=== PATIENT | female | born 1985 | race Caucasian/White ===

== ENCOUNTER 2018-12-07 12:14 | Inpatient (IN) | payer OTHER ==
--- NOTE | 2018-12-07 14:04 | US ---
EXAMINATION TYPE: US OB BPP wo non-stress DATE OF EXAM: 12/07/2018 COMPARISON: NONE CLINICAL HISTORY: decrease movement . EXAM PERFORMED: Transabdominal (TA) BPP PARAMETERS: PRESENTATION: Vertex LIE: Longitudinal?? HEART RATE: 140 bpm RHYTHM: Normal LONA: 17.4 DIAPHRAGM IMAGED: Yes BPP SCORIN. Breathin (1 episode of breathing of 30 second duration in 30 minutes of scanning time) 2. Movement: 2 (at least 3 discrete body movements in 30 minutes) 3. Tone: 2 (1 episode of active flexion/extension of limb) 4. LONA: 2 (LONA index > 5cm) IMPRESSION TOTAL SCORE: 6 / 8, breathing was not visualized during the examination. Heart rate of 140 bpm.
[2018-12-07] MEDS ORDERED: CITRIC ACID-SODIUM CITRATE 15 ML CUP PO ONE (15:13)
[2018-12-07] MEDS ORDERED: LACTATED RINGERS 1,000 ML IV ONE (15:13)
[2018-12-07] MEDS ORDERED: ceFAZolin IN SWFI 2 GM/20 ML SYRINGE IVP ONE (15:13)
[2018-12-07] MEDS ORDERED: LACTATED RINGERS 1,000 ML IV SCH ×2 (15:15→17:30)
[2018-12-07 15:53] VITALS: BMI 35.9
[2018-12-07 15:55] LABS: Basophils % (A) 0 %; Eosinophils # (A) 0.1 k/uL (0-0.7); Eosinophils % (A) 2 %; HCT 37.4 % (34.0-46.0); HGB 12.2 gm/dL (11.4-16.0); Lymphocytes # (A) 1.5 k/uL (1.0-4.8); Lymphocytes % (A) 18 %; MCH 27.9 pg (25.0-35.0); MCHC 32.7 g/dL (31.0-37.0); MCV 85.2 fL (80.0-100.0); Mean Platelet Volume 9.9; Monocytes # (A) 0.5 k/uL (0-1.0); Monocytes % (A) 6 %; Neutrophils # (A) 6.4 k/uL (1.3-7.7); Neutrophils % (A) 73 %; Platelet Count 222 k/uL (150-450); RBC 4.38 m/uL (3.80-5.40); RDW 13.5 % (11.5-15.5); WBC 8.8 k/uL (3.8-10.6)
[2018-12-07] MEDS ORDERED: ONDANSETRON 4 MG/2 ML VIAL ONE (16:37)
[2018-12-07] MEDS ORDERED: NALBUPHINE 10 MG/ML (1 ML AMP) ONE (16:37)
[2018-12-07] MEDS ORDERED: ePHEDrine SULFATE/0.9% NACL/PF 50 MG/5 ML SYRINGE IV ONE (16:37)
[2018-12-07] MEDS ORDERED: KETOROLAC 30 MG/ML 1 ML VIAL ONE (16:37)
[2018-12-07] MEDS ORDERED: MORPHINE SULFATE (PF) 0.3 MG/0.3 ML SYR ONE (16:37)
[2018-12-07] MEDS ORDERED: OXYTOCIN 10 UNIT/ML 1 ML VIAL ONE (16:37)
[2018-12-07] MEDS ORDERED: NALOXONE 0.4 MG/ML 1 ML VIAL IV PRN (17:21)
[2018-12-07] MEDS ORDERED: diphenhydrAMINE 25 MG CAP PO PRN (17:21)
[2018-12-07] MEDS ORDERED: IBUPROFEN 600 MG TAB PO PRN (17:21)
[2018-12-07] MEDS ORDERED: HYDROcodone/APAP 5-325MG 1 EACH TAB PO PRN (17:21)
[2018-12-07] MEDS ORDERED: SIMETHICONE 80 MG CHEWABLE PO PRN (17:21)
[2018-12-07] MEDS ORDERED: ONDANSETRON 4 MG/2 ML VIAL IVP PRN (17:21)
[2018-12-07] MEDS ORDERED: LANOLIN CREAM 5 GM TUBE TOPICAL PRN (17:21)
[2018-12-07] MEDS ORDERED: ACETAMINOPHEN TAB 325 MG TAB PO PRN (17:21)
[2018-12-07] MEDS ORDERED: ZOLPIDEM 5 MG TAB PO PRN (17:21)
[2018-12-07] MEDS ORDERED: METOCLOPRAMIDE 5 MG/ML 2 ML VIAL IVP PRN (17:21)
[2018-12-07] MEDS ORDERED: OXYTOCIN 20 UNITS/1000 ML NS 1,000 ML IV SCH (17:30)
--- NOTE | 2018-12-07 17:38 | P.HPOB ---
History of Present Illness H&P Date: 12/07/18 Chief Complaint: Decreased movement and abnormal antepartum testing This patient is a pleasant 33-year-old 3 para 2 female estimated date of confinement 12/18/2018 estimated gestational age 38-2/7 weeks who called this morning stating she's had no movement since 3:00 this morning. Patient is has been complicated by advanced maternal age she's been followed with nonstress tests and growth ultrasounds which have been normal. Patient did have an ultrasound that showed echogenic bowel and did see maternal medicine however evaluation at that time was negative. Patient presented to labor and delivery and had a reactive category 1 nonstress test however biophysical profile was only 6 out of 8 with no breathing. At that time I discussed with the patient options is to continue close antepartum surveillance versus outright delivery. Patient has requested delivery at this time. Patient's had previous section 2 desires repeat. Patient also was requesting permanent sterilization. Review of Systems Gastrointestinal: Reports heartburn Genitourinary: Reports Menstruation: Reports amenorrhea Past Medical History Past Medical History: No Reported History History of Any Multi-Drug Resistant Organisms: None Reported Past Surgical History: Section, Orthopedic Surgery Additional Past Surgical History / Comment(s): C-SECT X 2. BILAT SHOULDER SX TEENAGER Past Anesthesia/Blood Transfusion Reactions: Motion Sickness Additional Past Anesthesia/Blood Transfusion Reaction / Comment(s): STATES HAD HARD TIME PLACING EPIDURAL DURING LAST Past Psychological History: No Psychological Hx Reported Smoking Status: Never smoker Past Alcohol Use History: None Reported Additional Past Alcohol Use History / Comment(s): QUIT SMOKING 2006 Past Drug Use History: None Reported - Past Family History Brother(s) Family Medical History: Cancer Medications and Allergies Home Medications Medication Instructions Recorded Confirmed Type Pnv,Calcium 72/Iron/Folic Acid 1 each PO DAILY 12/06/18 12/06/18 History [ Plus Tablet] Allergies Allergy/AdvReac Type Severity Reaction Status Date / Time latex Allergy Rash/Hives Verified 12/06/18 14:41 morphine Allergy Rash/Hives Verified 12/06/18 14:41 Exam Vital Signs Temp Pulse Resp BP 12/07/18 15:47 98.6 F 79 16 119/72 Intake and Output 12/07/18 12/07/18 12/07/18 06:59 14:59 22:59 Other: Weight 127.006 kg - OBG Physical Exam Abdomen: bowel sounds normal, no diffuse tenderness, no bruit present, no guarding noted, no hepatomegaly, no splenomegaly, no mass Vulva: both: normal Vagina: normal moisture, no discharge Cervix: no lesion, no discharge Uterus: enlarged Results blood work shows she is O positive, rubella immune, RPR nonreactive, hepatitis B negative, group B strep was negative, Glucola was normal. Result Diagrams: 12/07/18 15:30 Assessment and Plan Assessment: This is a pleasant 33-year-old 3 para 2 female 38-2/7 weeks gestation who is admitted to labor and delivery with complaints of no movement since earlier this morning. Nonstress testing is reassuring however her biophysical profile showed no breathing movements. I discussed continued close observation versus delivery at this time. Patient has requested delivery and I feel is appropriate. Patient also was requesting permanent sterilization. Patient understands a tubal ligation is considered permanent however there is a failure of approximate 5 or less per thousand. She understands if she does become she is a 50% chance of a tubal or an ectopic . Patient also understands surgery itself and apparently has risks including risks of infection, bleeding, possible injury bowel, bladder, vessels, and/or other organs. Patient understands risk of DVT and pulmonary embolism. All the patient's questions are answered written consent is obtained. (1) 38 weeks gestation of Current Visit: Yes Status: Acute Code(s): Z3A.38 - 38 WEEKS GESTATION OF SNOMED Code(s): 87244962 (2) History of biophysical profile Current Visit: Yes Status: Acute Code(s): Z92.89 - PERSONAL HISTORY OF OTHER MEDICAL TREATMENT SNOMED Code(s): 316531648 (3) Previous section Current Visit: Yes Status: Acute Code(s): Z98.891 - HISTORY OF UTERINE SCAR FROM PREVIOUS SURGERY SNOMED Code(s): 719155348 (4) Family planning Current Visit: Yes Status: Acute Code(s): Z30.09 - ENCOUNTER FOR OT GENERAL CNSL AND ADVICE ON CONTRACEPTION SNOMED Code(s): 322836046
--- NOTE | 2018-12-07 17:45 | P.OP ---
Date of Procedure: 12/07/18 Preoperative Diagnosis: #1: 38-2/7 week . #2: Nonreassuring biophysical profile with decreased movement. #3: Previous section 2 desires repeat. #4: Multi parity desires permanent sterilization. #5. Elderly multipara Postoperative Diagnosis: Same Procedure(s) Performed: Repeat low transverse section and bilateral partial salpingectomy Anesthesia: spinal Surgeon: Aaron Bautista Yard Assistant #1: Juhi Carnes Estimated Blood Loss (ml): 600 Pathology: other (Placenta and bilateral fallopian tube segments) Condition: stable Disposition: floor Indications for Procedure: Please see dictated H&P for intimate details of this patient's admission. Brief summary pleasant 33-year-old 3 para 2 female 38 weeks gestation who presented with no movement is found to have a reactive NST and an abnormal biophysical profile. Patient requested repeat section and tubal ligation at this time Operative Findings: Yard Assistant vigorous viable female Apgars 7 and 9 delivery time was 1652 hrs. Nuchal cord 1. Normal uterus tubes and ovaries Description of Procedure: This patient has a Jiang catheter placed to straight drain. She is subsequently taken to the operating room where she sat up and spinal anesthetic is administered without incident. An adequate level of anesthesia she has abdominal prep and drape. Scalpels and taken Pfannenstiel skin incision is then made. A second scalpel is taken down the fascia the fascia scored with a knife. Fascial incision is then extended bilaterally using the Knox scissors. Fascia is dissected off the rectus muscles. Rectus muscles are the peritoneum identified and entered sharply. Peritoneal incision extended superior and inferior without difficulty. Bladder blade is then placed. B ladder peritoneum was taken sharply off the lower uterine segment. Scalpels and taken low transverse uterine incision is then made. Using a hemostat I into the uterine cavity bluntly. There is loss of clear fluid. 's head is then guided through the incision with fundal pressure. Mouth and nares are bulb suctioned. There is a nuchal cord which is reduced. We then have delivery the rest this 's body. This is a vigorous viable female infant Apgars are 7 and 9 delivery time is 1652 hrs. After delivery of the infant the umbilical cord is doubly clamped and cut. The infant is then taken over the warmer. Placenta is then manually extracted intact. Uterus is then externalized and uterine incision demarcated with Gustafson clamps. All debris is cleared from the uterine cavity. Uterine incision is then demarcated with Gustafson clamps and closed using 0 Vicryl running locked fashion in 2 layers. Bladder peritoneum was then reapproximated using a 3-0 Vicryl. Then turned my attention left fallopian tube and approximately 4 cm from the cornual insertion a small window made to the mesial salpinx with Bovie cautery. Using a 2-0 silk I doubly ligate a 2 cm segment of the tube. This is handed off to pathology. The tubal ends were then cauterized. Excellent hemostasis is noted. Similar results done on the right side with similar results. With this done the excess fluid is removed from the abdomen and pelvis. Uterus placed back into the abdomen. Final inspection shows all be hemostatic. The parietal peritoneum was then closed in 0 Vicryl running fashion. Rectus muscles reapproximated in 0 Vicryl interrupted fashion. Fascia is then closed using 0 PDS. Fascial incision is intact and hemostatic. Subcutaneous tissues and closed using a 3-0 Vicryl. S kin is and closed using pablo. All counts are correct 3. There are no complications. Infant and mother stable delivery room.
--- NOTE | 2018-12-07 17:46 | P.MSEPDOC ---
Presenting Problems - Arrival Data Date of Arrival on Unit: 12/07/18 Time of Arrival on Unit: 15:50 Mode of Transport: Ambulatory - Complaint OB-Reason for Admission/Chief Complaint: Decreased Movement Comment: dr avalos at the bedside doing assessment of patient Medical History - Information : 3 Para: 2 Term: 2 : 0 Abortions: Spontaneous or Elective: 0 Number of Living Children: 2 - Gestational Age Gestational Age by GLORIA (wks/days): 38 Weeks and 2 Days Review of Systems - Review of Systems Constitutional: No problems Breast: No problems ENT: No problems Cardiovascular: No problems Respiratory: No problems Gastrointestinal: No problems Genitourinary: No problems Musculoskeletal: No problems Neurological: No problems Skin: No problems Vital Signs - Temperature Temperature: 97.8 F Temperature Source: Temporal Artery Scan - Pulse Supine Pulse Rate: 62 Pulse Assessment Method: Automatic Cuff - Respirations Respiratory Rate: 16 Oxygen Delivery Method: Room Air - Blood Pressure Sitting Blood Pressure: 108/58 Blood Pressure Mean: 74 Blood Pressure Source: Automatic Cuff I agree with the RN Medical Screening Exam: Yes Risk & Benefit of care provided described in d/c instruction: Yes Diagnosis: DECREASED MOVEMENTS, THIRD TRIMESTER, FETUS 1
[2018-12-07] MEDS: SENNOSIDES-DOCUSATE SODIUM 1 EACH TAB PO SCH (23:49)
[2018-12-08] MEDS: KETOROLAC 30 MG/ML 1 ML VIAL IVP PRN ×3 (00:11→14:22)
[2018-12-08] MEDS: diphenhydrAMINE 50 MG/ML 1 ML VIAL IVP PRN ×2 (01:17→11:16)
[2018-12-08 06:43] LABS: Basophils % (A) 0 %; Eosinophils # (A) 0.1 k/uL (0-0.7); Eosinophils % (A) 1 %; HCT 29.5 % (34.0-46.0); Lymphocytes # (A) 1.2 k/uL (1.0-4.8); Lymphocytes % (A) 13 %; MCH 27.8 pg (25.0-35.0); MCHC 32.4 g/dL (31.0-37.0); MCV 85.7 fL (80.0-100.0); Mean Platelet Volume 9.8; Monocytes # (A) 0.6 k/uL (0-1.0); Monocytes % (A) 7 %; Neutrophils # (A) 6.8 k/uL (1.3-7.7); Neutrophils % (A) 77 %; Platelet Count 165 k/uL (150-450); RBC 3.44 m/uL (3.80-5.40); RDW 13.3 % (11.5-15.5); WBC 8.9 k/uL (3.8-10.6)
[2018-12-08 06:48] LABS: HGB 9.6 gm/dL (11.4-16.0)
--- NOTE | 2018-12-08 07:34 | P.PN ---
Progress Note - Text Progress Note Date: 12/08/18 Patient is POD#1 s/p with spinal duramorph. Pt w/o complaints. Pain controlled. Denies headache, weakness or paresthesia. Pruritis is treated with Benadryl. A/P POD#1 s/p - doing well
[2018-12-08] MEDS: SENNOSIDES-DOCUSATE SODIUM 1 EACH TAB PO SCH ×2 (07:43→19:22)
--- NOTE | 2018-12-08 09:53 | P.PNOBGPC ---
Subjective - Subjective Principal diagnosis: Postop day 1 Interval history: Overall negative is doing very well. She is involuting, voiding and tolerating her diet. She voices no complaints this time. Vital signs are stable and afebrile. Patient reports: Reports appetite normal, Reports voiding normally, Reports pain well controlled, Reports ambulating normally : in NICU Objective - Vital Signs Latest vital signs: Vital Signs Temp Pulse Resp BP Pulse Ox 12/08/18 08:00 98.2 F 65 16 112/61 97 12/08/18 04:00 97.6 F 79 16 110/77 99 12/07/18 23:46 98.3 F 74 16 104/66 95 12/07/18 20:00 97.2 F L 51 L 16 112/62 96 12/07/18 19:25 97.2 F L 51 L 16 112/62 96 12/07/18 18:55 56 L 16 124/64 12/07/18 18:25 98.0 F 97 16 114/63 12/07/18 18:10 97.5 F L 59 L 16 123/64 12/07/18 17:55 64 16 117/68 12/07/18 17:46 97.8 F 62 16 108/58 12/07/18 17:40 97.8 F 79 16 105/58 12/07/18 17:25 97.8 F 62 16 108/58 12/07/18 15:47 98.6 F 79 16 119/72 Intake and Output 12/07/18 12/08/18 12/08/18 22:59 06:59 14:59 Intake Total 300 1500 Output Total 550 700 Balance -250 800 Intake: Intake, IV Titration 1000 Amount Lactated Ringers 1,000 ml 1000 @ 125 mls/hr IV .Q8H [facility] Rx#:[id number] Oral 300 500 Output: Urine 550 700 Uretheral (Jiang) 550 Other: Voiding Method Indwelling Catheter - Exam Lungs: bilateral: normal Chest: Normal S1, Normal S2 Extremities: Present: normal Abdomen: Present: normal appearance, soft. Absent: distention, tenderness Incision: Present: normal, dry, intact Uterus: Present: normal, firm - Labs Labs: Abnormal Lab Results - Last 24 Hours (Table) 12/08/18 Range/Units 06:30 RBC 3.44 L (3.80-5.40) m/uL Hgb 9.6 L D (11.4-16.0) gm/dL Hct 29.5 L (34.0-46.0) %
[2018-12-08 16:04] VITALS: RESP 15
[2018-12-08 23:05] VITALS: BP 135/83; PULSE 70; TEMP 98
--- NOTE | 2018-12-08 23:37 | P.DS ---
Providers Date of admission: 12/07/18 14:59 Expected date of discharge: 12/08/18 Attending physician: Aaron Bautista Primary care physician: Stated None Hospital Course: Negative seen and evaluated again this evening. We are discharging her to be able to go with her baby who is being transferred to [facility]. Her vital signs are stable and she is afebrile. Her heart is regular, lungs clear, extremities without pain. Abdomen soft incisions clean dry and intact. I did come in and a prescription for [place] and Motrin are provided as well as a breast pump prescription. Discharge instructions are thoroughly reviewed and all questions were answered for her prior to her discharge. She is aware that she should follow-up the first part next week for staple removal as it is only 1 day and I do not feel pablo should be removed this time. Assessment postop day 1. Plan discharged home follow up with us on Tuesday for staple removal other discharge instructions again are thoroughly reviewed and all questions are answered for her prior to her discharge. Patient Condition at Discharge: Good Plan - Discharge Summary New Discharge Prescriptions: New Ibuprofen [Motrin] 600 mg PO Q6HR PRN #30 tab PRN Reason: Pain Ibuprofen [Motrin] 600 mg PO Q6HR PRN #30 tab PRN Reason: Pain HYDROcodone/APAP 5-325MG [[place] 5-325] 1 tab PO Q4HR PRN #30 tab PRN Reason: Pain No Action Pnv,Calcium 72/Iron/Folic Acid [ Plus Tablet] 1 each PO DAILY Discharge Medication List Pnv,Calcium 72/Iron/Folic Acid [ Plus Tablet] 1 each PO DAILY 12/06/18 [History] HYDROcodone/APAP 5-325MG [[place] 5-325] 1 tab PO Q4HR PRN #30 tab 12/08/18 [Rx] Ibuprofen [Motrin] 600 mg PO Q6HR PRN #30 tab 12/08/18 [Rx] Ibuprofen [Motrin] 600 mg PO Q6HR PRN #30 tab 12/08/18 [Rx] Follow up Appointment(s)/Referral(s): Aaron Bautista MD [STAFF PHYSICIAN] - 3 Days Activity/Diet/Wound Care/Special Instructions: No heavy lifting, limit stairs and driving, and pelvic rest. If any high temperatures, heavy bleeding, or severe pain call our office Discharge Disposition: HOME SELF-CARE
== END 2018-12-08 23:57 | disposition home or self-care (01) | DRG 785 ==
LOC: FBPOP 12:14 → 4FBP 14:59
PROVIDERS: ADMIT Obstetrics & Gynecology; ATTEND Obstetrics & Gynecology
PROC: 0UB70ZZ Excision of Bilateral Fallopian Tubes, Open Approach (ICD-10-PCS; 2018-12-07)
PROC: 10D00Z1 Extraction of Products of Conception, Low, Open Approach (ICD-10-PCS; principal; 2018-12-07 16:30)
DX: O36.8130 Decreased fetal movements, third trimester, not applicable or unspecified (principal); O34.211 Maternal care for low transverse scar from previous cesarean delivery; O69.81X0 Labor and delivery complicated by cord around neck, without compression, not applicable or unspecified; O99.72 Diseases of the skin and subcutaneous tissue complicating childbirth; L29.9 Pruritus, unspecified; Z37.0 Single live birth; Z3A.38 38 weeks gestation of pregnancy; Z88.5 Allergy status to narcotic agent; Z91.040 Latex allergy status; Z80.9 Family history of malignant neoplasm, unspecified; Z30.2 Encounter for sterilization
CPT/HCPCS: 76819; 85025; 86850; 86900; 86901; 88302; 88307; 99213

== ENCOUNTER 2020-02-01 20:05 | Emergency (ER) | payer OTHER ==
[2020-02-01 20:10] VITALS: TEMP 98.3
[2020-02-01] MEDS ORDERED: METOCLOPRAMIDE 5 MG/ML 2 ML VIAL IVP STA (20:30)
[2020-02-01] MEDS ORDERED: diphenhydrAMINE 50 MG/ML 1 ML VIAL IVP STA (20:30)
[2020-02-01 20:56] LABS: Basophils % (A) 1 %; Eosinophils # (A) 0.1 k/uL (0-0.7); Eosinophils % (A) 2 %; HCT 39.4 % (34.0-46.0); HGB 12.7 gm/dL (11.4-16.0); Lymphocytes # (A) 2.1 k/uL (1.0-4.8); Lymphocytes % (A) 34 %; MCH 28.2 pg (25.0-35.0); MCHC 32.4 g/dL (31.0-37.0); MCV 87.1 fL (80.0-100.0); Mean Platelet Volume 8.9; Monocytes # (A) 0.4 k/uL (0-1.0); Monocytes % (A) 6 %; Neutrophils # (A) 3.2 k/uL (1.3-7.7); Neutrophils % (A) 53 %; Platelet Count 239 k/uL (150-450); RBC 4.52 m/uL (3.80-5.40); RDW 13.2 % (11.5-15.5); WBC 6.1 k/uL (3.8-10.6)
[2020-02-01 21:01] LABS: Appearance,Urine Clear (Clear); Bacteria,Urine Rare /hpf; Bilirubin,Urine Negative (Negative); Blood,Urine Small (Negative); Color,Urine Colorless; Glucose,Urine (UA) Negative (Negative); Ketones,Urine Negative (Negative); Leukocyte Esterase,Urine Small (Negative); Mucus,Urine Rare /hpf; Nitrite,Urine Negative (Negative); Protein,Urine Negative (Negative); RBC,Urine 2 /hpf (0-5); Specific Gravity,Urine 1.004 (1.001-1.035); Squamous Epithelial Cell,Urine 2 /hpf (0-4); Urobilinogen,Urine <2.0 mg/dL (<2.0); WBC,Urine 3 /hpf (0-5)
[2020-02-01 21:04] LABS: INR 0.9 (<1.2); Partial Thromboplastin Time 23.9 sec (22.0-30.0); Prothrombin Time 9.7 sec (9.0-12.0)
--- NOTE | 2020-02-01 21:04 | ED ---
Headache HPI - General Chief Complaint: Headache Stated Complaint: Headache Time Seen by Provider: 02/01/20 20:20 Source: RN notes reviewed, old records reviewed Mode of arrival: ambulatory Limitations: no limitations - History of Present Illness Initial Comments: Patient is a 28 sexual female presents emergency department today with chief was sudden onset of a headache an hour prior to arrival after working out. Patient reports that she was working out doing Pilates and core and developed a sudden onset of a right-sided headache. She stated that she then passed out and then vomited. She states that she is having some blurry right vision. She states that this headache is different than any previous headache she's had in the past. She states is frontal behind the right eye. - Related Data Home Medications Medication Instructions Recorded Confirmed No Known Home Medications 02/01/20 02/01/20 Allergies Allergy/AdvReac Type Severity Reaction Status Date / Time latex Allergy Rash/Hives Verified 02/01/20 21:57 morphine Allergy Rash/Hives Verified 02/01/20 21:57 Review of Systems ROS Statement: Those systems with pertinent positive or pertinent negative responses have been documented in the HPI. ROS Other: All systems not noted in ROS Statement are negative. Past Medical History Past Medical History: No Reported History Additional Past Medical History / Comment(s): migraines History of Any Multi-Drug Resistant Organisms: None Reported Past Surgical History: Section, Orthopedic Surgery Additional Past Surgical History / Comment(s): C-SECT X 2. BILAT SHOULDER SX TEENAGER Past Anesthesia/Blood Transfusion Reactions: Motion Sickness Additional Past Anesthesia/Blood Transfusion Reaction / Comment(s): STATES HAD HARD TIME PLACING EPIDURAL DURING LAST Past Psychological History: No Psychological Hx Reported Smoking Status: Former smoker Past Alcohol Use History: Rare Past Drug Use History: None Reported - Past Family History Brother(s) Family Medical History: Cancer General Exam - General Exam Comments Initial Comments: 34-year-old female. Alert and oriented. Patient appears in moderate discomfort. Limitations: no limitations General appearance: alert, in no apparent distress Head exam: Present: atraumatic, normocephalic, normal inspection Eye exam: Present: normal appearance, PERRL, EOMI. Absent: scleral icterus, conjunctival injection, periorbital swelling ENT exam: Present: normal exam, mucous membranes moist Neck exam: Present: normal inspection. Absent: tenderness, meningismus, lymphadenopathy Respiratory exam: Present: normal lung sounds bilaterally. Absent: respiratory distress, wheezes, rales, rhonchi, stridor Cardiovascular Exam: Present: regular rate, normal rhythm, normal heart sounds. Absent: systolic murmur, diastolic murmur, rubs, gallop, clicks GI/Abdominal exam: Present: soft, normal bowel sounds. Absent: distended, tenderness, guarding, rebound, rigid Extremities exam: Present: normal inspection, full ROM, normal capillary refill. Absent: tenderness, pedal edema, joint swelling, calf tenderness Back exam: Present: normal inspection Neurological exam: Present: alert, oriented X3, CN II-XII intact Course Vital Signs 02/01/20 02/01/20 02/01/20 20:07 20:40 21:38 Temperature 98.3 F Pulse Rate 57 L 60 Respiratory 20 16 Rate Blood Pressure 131/84 133/85 120/68 O2 Sat by Pulse 96 99 98 Oximetry 02/01/20 22:00 Temperature Pulse Rate 62 Respiratory 16 Rate Blood Pressure 120/68 O2 Sat by Pulse Oximetry - Reevaluation(s) Reevaluation #1: 02/01/20 21:45 Patient was reevaluated and reported abnormal computed tomography scan findings. She states her headache is improving after Reglan and Benadryl. Plan the Patient on oxygen. Discussed case with Dr. Dasilva and the fact the patient's headache started less than 6 hours ago on for the Patient Toradol to see if this helps as well. Medical Decision Making - Medical Decision Making Oriented 34-year-old female wants emergency department today for concern for headache. She reports headaches or when she was working out. She stated that headache was a quick onset onset and she vomited afterwards. Initial concern was for hemorrhage. She reports the headache started less than 6 hours for her to arrival to emergency department. She did complain of some pain towards the right side of her head and eye. Patient has no acute neurological deficits. Vital signs stable. Patient was given IV fluids labwork obtained. She is given Reglan and Benadryl initially. She went to emergency to straight to CT for CT without contrast and CT angios [place]. These were both negative for bleeding or evidence of aneurysm. Patient was reevaluated after receiving medication of Reglan and Benadryl and states that she was ready feeling somewhat better. I discussed case with Dr. Talbert he could not give Patient Toradol. She is adamant that headache started less than 6 hours prior to arrival. After Toradol she felt even better and stated her headache was now a 2 out of 10. Patient denies any other significant complaints. She does have a history of migraines and stated this did feel somewhat different. She states that she does feel well enough to go home at this time. Discussed possible occular migraine or cluster headache. Discussed Patient should likely follow up with neurology and primary care physician within the week. Discussed she had any other concerning signs or symptoms that develop please return to the ER for reevaluation. Patient understands treatment plan will comply. - Lab Data Result diagrams: 02/01/20 20:39 02/01/20 20:39 Lab Results 02/01/20 02/01/20 02/01/20 Range/Units 20:39 20:39 20:39 WBC 6.1 (3.8-10.6) k/uL RBC 4.52 (3.80-5.40) m/uL Hgb 12.7 (11.4-16.0) gm/dL Hct 39.4 (34.0-46.0) % MCV 87.1 (80.0-100.0) fL MCH 28.2 (25.0-35.0) pg MCHC 32.4 (31.0-37.0) g/dL RDW 13.2 (11.5-15.5) % Plt Count 239 (150-450) k/uL Neutrophils % 53 % Lymphocytes % 34 % Monocytes % 6 % Eosinophils % 2 % Basophils % 1 % Neutrophils # 3.2 (1.3-7.7) k/uL Lymphocytes # 2.1 (1.0-4.8) k/uL Monocytes # 0.4 (0-1.0) k/uL Eosinophils # 0.1 (0-0.7) k/uL Basophils # 0.0 (0-0.2) k/uL PT 9.7 (9.0-12.0) sec INR 0.9 (<1.2) APTT 23.9 (22.0-30.0) sec Sodium (137-145) mmol/L Potassium (3.5-5.1) mmol/L Chloride (98-107) mmol/L Carbon Dioxide (22-30) mmol/L Anion Gap mmol/L BUN (7-17) mg/dL Creatinine (0.52-1.04) mg/dL Est GFR (CKD-EPI)AfAm (>60 ml/min/1.73 sqM) Est GFR (CKD-EPI)NonAf (>60 ml/min/1.73 sqM) Glucose (74-99) mg/dL Calcium (8.4-10.2) mg/dL Total Bilirubin (0.2-1.3) mg/dL AST (14-36) U/L ALT (4-34) U/L Alkaline Phosphatase (38-126) U/L Total Protein (6.3-8.2) g/dL Albumin (3.5-5.0) g/dL Urine Color Colorless Urine Appearance Clear (Clear) Urine pH 7.0 (5.0-8.0) Ur Specific [place] 1.004 (1.001-1.035) Urine Protein Negative (Negative) Urine Glucose (UA) Negative (Negative) Urine Ketones Negative (Negative) Urine Blood Small H (Negative) Urine Nitrite Negative (Negative) Urine Bilirubin Negative (Negative) Urine Urobilinogen <2.0 (<2.0) mg/dL Ur Leukocyte Esterase Small H (Negative) Urine RBC 2 (0-5) /hpf Urine WBC 3 (0-5) /hpf Ur Squamous Epith Cells 2 (0-4) /hpf Urine Bacteria Rare H (None) /hpf Urine Mucus Rare H (None) /hpf 02/01/20 Range/Units 20:39 WBC (3.8-10.6) k/uL RBC (3.80-5.40) m/uL Hgb (11.4-16.0) gm/dL Hct (34.0-46.0) % MCV (80.0-100.0) fL MCH (25.0-35.0) pg MCHC (31.0-37.0) g/dL RDW (11.5-15.5) % Plt Count (150-450) k/uL Neutrophils % % Lymphocytes % % Monocytes % % Eosinophils % % Basophils % % Neutrophils # (1.3-7.7) k/uL Lymphocytes # (1.0-4.8) k/uL Monocytes # (0-1.0) k/uL Eosinophils # (0-0.7) k/uL Basophils # (0-0.2) k/uL PT (9.0-12.0) sec INR (<1.2) APTT (22.0-30.0) sec Sodium 139 (137-145) mmol/L Potassium 3.9 (3.5-5.1) mmol/L Chloride 105 (98-107) mmol/L Carbon Dioxide 25 (22-30) mmol/L Anion Gap 9 mmol/L BUN 15 (7-17) mg/dL Creatinine 0.70 (0.52-1.04) mg/dL Est GFR (CKD-EPI)AfAm >90 (>60 ml/min/1.73 sqM) Est GFR (CKD-EPI)NonAf >90 (>60 ml/min/1.73 sqM) Glucose 97 (74-99) mg/dL Calcium 9.6 (8.4-10.2) mg/dL Total Bilirubin 0.4 (0.2-1.3) mg/dL AST 28 (14-36) U/L ALT 17 (4-34) U/L Alkaline Phosphatase 76 (38-126) U/L Total Protein 7.4 (6.3-8.2) g/dL Albumin 4.5 (3.5-5.0) g/dL Urine Color Urine Appearance (Clear) Urine pH (5.0-8.0) Ur Specific [place] (1.001-1.035) Urine Protein (Negative) Urine Glucose (UA) (Negative) Urine Ketones (Negative) Urine Blood (Negative) Urine Nitrite (Negative) Urine Bilirubin (Negative) Urine Urobilinogen (<2.0) mg/dL Ur Leukocyte Esterase (Negative) Urine RBC (0-5) /hpf Urine WBC (0-5) /hpf Ur Squamous Epith Cells (0-4) /hpf Urine Bacteria (None) /hpf Urine Mucus (None) /hpf 02/01/20 21:45 - Radiology Data Radiology results: report reviewed Normal CT brain. Normal [place]. Disposition Clinical Impression: Headache Disposition: HOME SELF-CARE Condition: Good Instructions (If sedation given, give patient instructions): Acute Headache (ED) Additional Instructions: Is return to the emergency department if there is other alarming signs symptoms that occur including worsening headache or any neurological deficits. Patient should follow-up with primary care doctor neurology. Return to ED if any alarming signs or symptoms occur. Is patient prescribed a controlled substance at d/c from ED?: No Referrals: None,Stated [Primary Care Provider] - 1-2 days Rex Diop MD [REFERRING] - 1-2 days Time of Disposition: 22:29
[2020-02-01 21:10] LABS: ALT 17 U/L (4-34); AST 28 U/L (14-36); African American GFR (CKD) >90 (>60 ml/min/1.73 sqM); Albumin 4.5 g/dL (3.5-5.0); Alkaline Phosphatase 76 U/L (38-126); Anion Gap 9 mmol/L; Blood Urea Nitrogen 15 mg/dL (7-17); Calcium 9.6 mg/dL (8.4-10.2); Carbon Dioxide 25 mmol/L (22-30); Chloride 105 mmol/L (98-107); Glucose 97 mg/dL (74-99); Non-African American GFR(CKD) >90 (>60 ml/min/1.73 sqM); Potassium 3.9 mmol/L (3.5-5.1); Sodium 139 mmol/L (137-145); Total Bilirubin 0.4 mg/dL (0.2-1.3); Total Protein 7.4 g/dL (6.3-8.2)
--- NOTE | 2020-02-01 21:19 | CT ---
EXAMINATION TYPE: CT brain wo con DATE OF EXAM: 02/01/2020 COMPARISON: None INDICATION: migraine DLP: 1127.4 mGycm, Automated exposure control for dose reduction was used. CONTRAST: None CT of the brain is performed utilizing 3 mm thick sections through the posterior fossa and 3 mm thick sections through the remaining calvarium. Study is performed within 24 hours of arrival to the [facility]. Metallic devices are within the ears bilaterally No abnormal hyperdensity is present to suggest an acute intracranial hemorrhage. No mass lesion is evident. No acute infarcts are evident. Ventricles and sulci are appropriate for the patient age. Paranasal sinuses and mastoid air cells within the [id number] are clear. IMPRESSIONS: 1. Normal CT Brain
--- NOTE | 2020-02-01 21:21 | CT ---
EXAMINATION TYPE: CT angio [place] DATE OF EXAM: 02/01/2020 HISTORY: migraine COMPARISON: None CT DLP: 1099.2 mGycm. Automated Exposure Control for Dose Reduction was Utilized. TECHNIQUE: CTA scan of the neck is performed with IV Contrast, patient injected with 100 mL of Isovu e 370, axial images are obtained, coronal and sagittal reformatted images are reviewed. Three-D recon structed images are created on an independent workstation and reviewed. Source images are reviewed. FINDINGS: Cervical of [place]: Vertebral basilar system appears normal. Posterior cerebral vasculature is unrema rkable. Internal carotid arteries bifurcate normally into A1 and M1 segments. A2 segments are normal. The anterior communicating artery is patent. Left posterior communicating artery is absent. Right po sterior communicating artery is patent. IMPRESSION: 1. Normal [place]
[2020-02-01] MEDS ORDERED: KETOROLAC 30 MG/ML 1 ML VIAL IVP STA ×2 (21:27→21:32)
[2020-02-01 21:39] VITALS: BP 120/68; RESP 16
[2020-02-01 22:32] VITALS: PULSE 62
== END 2020-02-01 22:38 | disposition home or self-care (01) ==
LOC: EC 20:05
DX: R51 Headache (principal); R11.2 Nausea with vomiting, unspecified; H57.11 Ocular pain, right eye; Z88.5 Allergy status to narcotic agent; Z91.040 Latex allergy status
CPT/HCPCS: 36415; 80053; 85025; 85610; 85730; 81001; 70496; 70450; 96374; 96375 ×2; 99284; J1200; J2765; J1885; Q9967

== ENCOUNTER → 2020-06-18 | Outpatient (CLI) | payer OTHER ==
--- NOTE | 2020-06-18 16:30 | P.HPBAR ---
Bariatric H&P - History & Physicial H&P Date: 06/18/20 History & Physicial: Visit/CC: Patient initial contact: Initial weight: Initial weight in pounds: Height: 6 ft 0.4 in Initial BMI: Last weight: Current weight: 137.03 kg Current weight in pounds: Current BMI: [place] body weight (based on NIH guidelines): Excess body weight loss: The patient is a 34 year-old F who presents for Bariatric Assessment. She is looking into gastric bypass. She has tried All weight loss programs. She has tried [employer]. She works out 6 days per week. She has been veggie and container with portion control. She has done Keto. She did nutrisystem. Her highest is 340 pounds. She lost 269 pounds with beach [employer]. She got and noted portion control. She has her gallbladder. She had a tubal ligation. She has cousins with colitis. She had GERD during . No DVTs or blood clots. She has family history of heart disease in her mother and brother. No report of chest pain. No other obesity in family. LABS: Past Medical History Past Medical History: No Reported History Additional Past Medical History / Comment(s): migraines History of Any Multi-Drug Resistant Organisms: None Reported Past Surgical History: Section, Orthopedic Surgery Additional Past Surgical History / Comment(s): C-SECT X 2. BILAT SHOULDER SX TEENAGER Past Anesthesia/Blood Transfusion Reactions: Motion Sickness Additional Past Anesthesia/Blood Transfusion Reaction / Comm: STATES HAD HARD TIME PLACING EPIDURAL DURING LAST Past Psychological History: No Psychological Hx Reported Smoking Status: Former smoker Past Alcohol Use History: Rare Past Drug Use History: None Reported - Past Family History Brother(s) Family Medical History: Cancer Bariatric Checklist Checklist: Plan: Checklist: EGD: 1. Hiatal hernia: 2. H. Pylori: HgbA1c: Vitamin D: Smoking: Never smoker Primary care physician referral: Psychiatry clearance: Cardiology clearance: Sleep study: Diet journal: VTE risk score: VTE risk level: Rehab needs at discharge:
[2020-06-18 16:41] VITALS: BP 125/76; PULSE 60; RESP 18; TEMP 98.3; BMI 40.5
== END | disposition home or self-care (01) ==
LOC: BARWHC3 16:01
PROVIDERS: ATTEND Surgery Plastic and Reconstructive Surgery
DX: O99.619 Diseases of the digestive system complicating pregnancy, unspecified trimester (principal); K21.9 Gastro-esophageal reflux disease without esophagitis; Z87.891 Personal history of nicotine dependence; Z82.49 Family history of ischemic heart disease and other diseases of the circulatory system; Z83.79 Family history of other diseases of the digestive system; Z3A.00 Weeks of gestation of pregnancy not specified; Z98.51 Tubal ligation status
CPT/HCPCS: 99211